=== PATIENT | female | born 1995 | race Hispanic/Latino ===

== ENCOUNTER 2017-01-10 01:20 | Emergency (ER) | payer BC ==
[2017-01-10 01:26] VITALS: BP 141/98; PULSE 80; RESP 16; TEMP 97.8; O2SAT 100
[2017-01-10] MEDS ORDERED: Liquid Adhesive TOP ONE (01:37)
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
== END 2017-01-10 03:25 | disposition home or self-care (01) ==
LOC: H.ER 01:20
DX: S01.81XA Laceration without foreign body of other part of head, initial encounter (principal); Y04.0XXA Assault by unarmed brawl or fight, initial encounter; Y92.89 Other specified places as the place of occurrence of the external cause